=== PATIENT | male | born 1975 | race Caucasian/White ===

== ENCOUNTER 2017-10-20 09:50 | Emergency (ER) | payer OTHER ==
[~2017-10-20] VITALS: Ht 172.7 cm; Wt 77.1 kg
[2017-10-20] MEDS ORDERED: IBUPROFEN 800800 M1 PO (10:39)
[2017-10-20] MEDS ORDERED: HYDROCODONE-AP1 EAC6 PO (10:39)
[2017-10-20 10:51] VITALS: BP 107/70
== END 2017-10-20 10:51 | disposition home or self-care (01) ==
LOC: M.ERS 09:50
DX: M25.562 Pain in left knee (principal)